=== PATIENT | female | born 1955 | race Caucasian/White ===

== ENCOUNTER 2020-11-05 16:17 | Emergency (ER) | payer OTHER | END 2020-11-05 18:10 | disposition left against medical advice (07) | LOC: ER1 16:17 | DX: Z53.21 Procedure and treatment not carried out due to patient leaving prior to being seen by health care provider (principal) ==

== ENCOUNTER → 2020-11-09 | Outpatient (CLI) | payer OTHER | LOC: RAD 16:39 | DX: U07.1 COVID-19 (principal) | CPT/HCPCS: 71046 ==

== ENCOUNTER 2020-11-10 13:07 | Emergency (ER) | payer OTHER ==
[2020-11-10 14:07] LABS: HEMOGLOBIN 15.8 gm/dl (12.3-15.3); WHITE BLOOD COUNT 5.1 K/UL (4.5-11.0)
[2020-11-10 14:38] LABS: BUN/CREATININE RATIO 23 (0-10)
== END 2020-11-10 19:18 | disposition left against medical advice (07) ==
LOC: ER1 13:07
PROVIDERS: Physician Assistant
DX: U07.1 COVID-19 (principal); J20.8 Acute bronchitis due to other specified organisms; J44.9 Chronic obstructive pulmonary disease, unspecified; E78.5 Hyperlipidemia, unspecified; I10 Essential (primary) hypertension; Z88.1 Allergy status to other antibiotic agents; Z88.8 Allergy status to other drugs, medicaments and biological substances; F17.200 Nicotine dependence, unspecified, uncomplicated
CPT/HCPCS: 80053; 85025; 99284